=== PATIENT | female | born 2000 | race Caucasian/White ===

== ENCOUNTER 2023-12-16 15:58 | Emergency (ER) | payer OTHER ==
[2023-12-16] MEDS: Ibuprofen 600 MG Tab PO ONE (16:17)
[2023-12-16] MEDS: Acetaminophen 325 MG Tab PO ONE (16:18)
== END 2023-12-16 17:38 | disposition home or self-care (01) ==
LOC: MW.ED 15:58
DX: M79.652 Pain in left thigh (principal); F80.81 Childhood onset fluency disorder; R07.89 Other chest pain; Z88.1 Allergy status to other antibiotic agents; Z88.0 Allergy status to penicillin; Z88.2 Allergy status to sulfonamides; Z79.899 Other long term (current) drug therapy; V89.2XXA Person injured in unspecified motor-vehicle accident, traffic, initial encounter
CPT/HCPCS: 70450; 71045; 73552; 99284; A9270